=== PATIENT | male | born 1990 | race African-American/Black ===

== ENCOUNTER 2016-07-05 15:23 | Emergency (ER) | payer OTHER ==
--- NOTE | 2016-07-05 16:33 | RAD ---
PA AND LATERAL CHEST: Date: 07-05-16 History: Coughing, chest pain. FINDINGS: The cardiac silhouette is at the upper limits of normal in size. Pulmonary vasculature is within no rmal limits. The lungs are clear. The osseous structures are intact. IMPRESSION: No acute cardiopulmonary process. POS: BAKARI
--- NOTE | 2016-07-05 16:59 | PICIS ---
[facility] EMERGENCY RECORD TRIAGE (15:33 JPAR) TRIAGE NOTES: coughing and sneezing 3 days. (15:33 JPAR) PATIENT: NAME: Jarocho Beebe JR, AGE: 26, GENDER: male, : Mon1990, TIME OF GREET: MonJul 05, 2016 15:24, PREFERRED LANGUAGE: Indonesian, ETHNICITY: Not or , ECODE BILLING MAP: [facility], SSN: [id number], Zip Code: [address], KG WEIGHT: 90.72, PHONE: , , , PERSON ID: [id number], [facility] (15:33 JPAR) COMPLAINT: SNEEZING/COUGHING. (15:33 JPAR) ADMISSION: URGENCY: 5 Fast Track, ADMISSION SOURCE: Home, TRANSPORT: CAR, BED: TRIAGE. (15:33 JPAR) ASSESSMENT: Assessment: coughing and sneezing, R rib pain when coughing or sneezing, Symptoms began 3 days, Symptoms began 3 days ago. (15:35 JPAR) SIRS SCORING: Heart Rate 55-109 (0), Temp range 96.8-101.1 (0), respiratory rate 12-24 (0), Mental Status altered: no (0), Infection or Suspected Infection: No. (15:35 JPAR) TRIAGE SCREENING: Patient denies suicidal ideation, Patient denies presence of domestic violence. (15:35 JPAR) PROVIDERS: TRIAGE NURSE: Manuel Montero RN. (15:33 JPAR) VITAL SIGNS: BP 127/83, Pulse 66, Resp 16, Temp 98.9, (Oral), Pain 5, O2 Sat 99, on Room Air, Time 07/05/2016 15:32. (15:32 JPAR) PREVIOUS VISIT ALLERGIES: No Known Drug Allergies. (15:33 JPAR) No Known Drug Allergies. (15:35 JPAR) KNOWN ALLERGIES No Known Drug Allergies CURRENT MEDICATIONS (15:33 JPAR) None VITAL SIGNS (15:32 JPAR) VITAL SIGNS: BP: 127/83, Pulse: 66, Resp: 16, Temp: 98.9 (Oral), Pain: 5, O2 sat: 99 on Room Air, Time: 07/05/2016 15:32. NURSING ASSESSMENT: FOCUSED (15:33 JPAR) CONSTITUTIONAL: Patient arrives ambulatory, Gait steady, History obtained from patient, Patient appears comfortable, Patient cooperative, Patient alert, Oriented to person, place and time, Skin warm, Skin dry, Skin normal in color, Mucous membranes pink, Mucous membranes moist, Patient complains of seasonal allergies/ coughing and sneezing for 3 days, pt now complains of R rib pain because he has been coughing and sneezing for 3 days. PAIN: aching pain, R lower rib cage, Onset of pain 3 days, on a scale 0-10 patient rates pain as 5, Pain exacerbated by, coughing and sneezing. EYES: Focused eye assessment finding include pupils equally round and reactive to light, no redness, no tearing, no foreign body &a-1R&a+25V*p+0X*c3091F*c202B*c15G*c2P*p-0X&a-25V&a+1R Name: Jarocho Beebe Torsten ARIAS : 1990 M26 MedRec: [id number] AcctNum: [id number] Prepared: MonJul 05, 2016 16:57 by Interface Page 1 of 5 pMD [facility] EMERGENCY RECORD sensation. RESPIRATORY: Focused respiratory assessment findings include breath sounds clear. SAFETY: Side rails up, Cart/Stretcher in lowest position, Family at bedside, Call light within reach, Hospital ID band on. NURSING PROCEDURE: DISCHARGE NOTE (16:51 JPAR) DISCHARGE: Patient discharged to home, ambulating without assistance, driving self, unaccompanied, Summary of Care printed/ provided, Patient requested and was provided an electronic copy of Discharge Instructions, Transition record given to patient, Discharge instructions given to patient, Simple or moderate discharge teaching performed, drink more water, establish PCP at [facility] Prescriptions given and instructions on side effects given, Name of prescription(s) given: Ultram, Medication reconciliation form given, Above person(s) verbalized understanding of discharge instructions and follow-up care, Patient treated and evaluated by physician. BELONGINGS: Belongings and valuables with patient at time of discharge include:, Belongings remain with patient, Valuables remain with patient. SAFETY: Side rails up, Cart/Stretcher in lowest position, Call light within reach, Hospital ID band on. NURSING PROCEDURE: NURSE NOTES NURSES NOTES: Patient in no apparent distress, Notes: Pt has been in ER for 25 minutes and RN has not seen or heard pt sneeze or cough yet. (15:58 JPAR) Notes: pt has not coughed or sneezed once in 70 minutes. (16:45 JPAR) NURSING PROCEDURE: TRANSPORT TO TESTS (16:27 CCRI) TRANSPORT TO TESTS: Patient transported to x-ray, ambulatory, Accompanied by x-ray registered dietetic technician, Patient arrived in location at 16:19, Patient departed location at 16:24. ORDER DETAILS Order Name: XR Chest Pa & Lat STANDARD, Status: Active, Time: 16:10 07/05/2016, User: FABI, - Ordered for: MD Yanes Andrea, - Entered by: MD Yanes Andrea - MonJul 05, 2016 16:10, - Quantity: 1. HPI COUGH (16:10 AGRE) CHIEF COMPLAINT: Patient presents for evaluation of cough. HISTORIAN: History provided by patient, WAS COUGHING AND SNEEZING FOR A FEW DAYS AND NOW HAS PAIN SHOOTING UP THE RIGHT SIDE OF HIS CHEST WHEN HE COUGHS OR SNEEZES. THINKS HE HAD A FEVER A FEW DAYS AGO. NO NASAL CONGESTION, TRAUMA, &a-1R&a+25V*p+0X*s2481U*c202B*c15G*c2P*p-0X&a-25V&a+1R Name: Abiel Jarochodenisa Sarmiento JR : 1990 M26 MedRec: [id number] AcctNum: [id number] Prepared: MonJul 05, 2016 16:57 by Interface Page 2 of 5 pMD [facility] EMERGENCY RECORD OTHER SYMPTOMS. LOCATION: Symptoms are localized, most severe to RIGHT LATERAL CHEST WALL. QUALITY: Denies tightness, Denies wheezing, Pain is sharp in nature, described as stabbing, described as tearing sensation. SEVERITY: Maximum severity of symptoms moderate, Currently symptoms are moderate. TIME COURSE: Gradual onset of symptoms, Symptoms are worsening. ASSOCIATED WITH: Associated with chest pain, No associated chills, No associated diarrhea, No associated diaphoresis, No associated dyspnea on exertion, No associated fever, No associated nausea, No associated stridor, No associated upper respiratory infection, No associated wheezing, No associated weakness, Denies any other complaints. EXACERBATED BY: Patient's condition exacerbated by deep breaths. RELIEVED BY: Patient's condition relieved by nothing. ROS (16:12 AGRE) CONSTITUTIONAL: Historian denies chills, denies fever, denies lethargy, denies malaise. EYES: Historian denies eye pain, denies eye redness. ENT: Historian denies rhinorrhea, denies sinus pain, denies sore throat. CARDIOVASCULAR: Historian reports chest pain, denies dyspnea on exertion. RESPIRATORY: Historian reports cough, denies shortness of breath, reports sputum, denies stridor, denies wheezing. GI: Historian denies abdominal pain, denies nausea, denies vomiting. MUSCULOSKELETAL: Historian denies back pain, denies neck pain. SKIN: Negative skin review of systems, Historian denies skin changes, denies skin lesions. NEUROLOGIC: Historian denies headache, denies mental status changes. PSYCHIATRIC: Negative psychiatric review of systems, Historian denies anxiety. PAST MEDICAL HISTORY (15:35 JPAR) MEDICAL HISTORY: Notes: Gallstones, Flu vaccine not up to date, Tetanus immunization up to date, Pneumococcal vaccine up to date. MALE SURGICAL HISTORY: Surgical history of cholecystectomy, Date of surgery 2011. PSYCHIATRIC HISTORY: No previous psychiatric history. SOCIAL HISTORY: Patient denies alcohol use, Patient denies drug use, Patient has no smoking history. PHYSICAL EXAM (16:13 AGRE) CONSTITUTIONAL: Vital signs reviewed, Patient afebrile, Patient appears non toxic, Patient appears pain free, Patient alert and &a-1R&a+25V*p+0X*i5762I*c202B*c15G*c2P*p-0X&a-25V&a+1R Name: Abiel Jarocho Torsten ARIAS : 1990 M26 MedRec: [id number] AcctNum: [id number] Prepared: MonJul 05, 2016 16:57 by Interface Page 3 of 5 pMD [facility] EMERGENCY RECORD oriented to person, place and time, NURSES NOTES REVIEWED. HEAD: Head exam included findings of head atraumatic, normocephalic. EYES: Eye exam included findings of eyelids normal to inspection, Extraocular muscles intact, Conjunctiva normal, Sclera normal. ENT: Ear exam normal, tympanic membranes normal, Nose exam normal, No turbinate mucosa discharge, Pharynx exam normal, Uvula exam normal, Tonsil exam normal, Mouth exam normal. NECK: Neck exam included findings of normal range of motion, no meningeal signs. RESPIRATORY CHEST: Breath sounds clear, No wheezing, No rales, No rhonchi, Breath sounds not absent, Breath sounds not diminished, Tenderness, moderate, to the right lateral chest, Palpation of chest reproduces symptoms, no crepitus, Respiratory exam included findings of no respiratory distress, Chest exam included findings of chest movement symmetrical. CARDIOVASCULAR: Cardiovascular assessment normal, Cardiovascular exam included findings of heart rate regular rate and rhythm, Heart sounds normal. BACK: Back exam included findings of normal inspection, range of motion normal. UPPER EXTREMITY: Upper extremity exam included findings of inspection normal, Range of motion normal. LOWER EXTREMITY: Lower extremity exam included findings of inspection normal, Range of motion normal. NEURO: Neuro exam findings include patient oriented to person, place and time, Speech normal, Gait normal, Memory normal, Cranial nerves intact, no focal motor deficits. SKIN: Skin exam included findings of skin warm, dry, and normal in color. PSYCHIATRIC: Psychiatric exam normal, Normal affect. EVENTS TRANSFER: Triage to Emergency Triage. (MonJul 05, 2016 15:33 JPAR) Removed from Emergency Triage. (16:54 JPAR) RADIOLOGYINTERPRETATION (16:41 AGRE) DIGITAL STRATEGIST: Preliminary review of x-rays by, Radiologist, IMPRESSION: No acute cardiopulmonary process. O2SAT INTERPRETATION (16:48 AGRE) O2SAT: Continuous pulse oximetry, Oxygen saturation 99%, on room air, Oxygen saturation interpretation: Normal, No intervention required. DOCTOR NOTES (16:48 AGRE) TEXT: PATIENT REMAINED COMFORTABLE IN ED WITHOUT SIGNS OF &a-1R&a+25V*p+0X*s0736Q*c202B*c15G*c2P*p-0X&a-25V&a+1R Name: Jarocho Beebe Torsten ARIAS : 1990 M26 MedRec: [id number] AcctNum: [id number] Prepared: MonJul 05, 2016 16:57 by Interface Page 4 of 5 pMD [facility] EMERGENCY RECORD DISTRESS. DISCUSSED WITH HIM FINDINGS ON EXAM, RESULTS OF XRAY STUDIES, POSSIBILITY FOR HAIRLINE FX AND NEED FOR FOLLOW UP. HE EXPRESSED UNDERSTANDING AND AGREEMENT. PATIENT STATUS: Patient has improved since arrival to emergency department. PATIENT PLAN: The patient will be discharged. DATA REVIEWED: Xray data reviewed. PROBLEM LIST No recorded problems DIAGNOSIS (16:43 AGRE) FINAL: PRIMARY: BRONCHITIS, ADDITIONAL: CHEST WALL PAIN. DISPOSITION PATIENT: Disposition Type: Discharge, Disposition: *Discharge Home, Condition: Improved. (16:43 AGRE) Patient left the department. (16:54 JPAR) INSTRUCTION (16:45 AGRE) DISCHARGE: BRONCHITIS, NO ABX (ADULT), ALLERGY SEASONAL. FOLLOWUP: [facility], [facility] , . SPECIAL: TAKE BENADRYL 50 MG EVERY 8 HOURS NEEDED FOR SNEEZING. TAKE MOTRIN 800 MG EVERY 8 HOURS FOR INFLAMMATION AND PAIN. TAKE ULTRAM FOR SEVERE PAIN. SEE YOUR PHYSICIAN FOR RECHECK EARLY NEXT WEEK. SEE A PHYSICIAN SOONER IF WORSENING OR IF NEW SYMPTOMS DEVELOP. PRESCRIPTION (16:43 AGRE) Ultram: TABLET : 50 mg : ORAL : Quantity: 1-2 Unit: tab(s) Route: ORAL Schedule: every 6 hours PRN Dispense: 20 May substitute. Refills: No Refills . NOTES: PRN SEVERE PAIN No Refills. IMAGING (16:53 JPAR) *SUPPLY CHARGE SHEET: Image captured from scanner. *DISCHARGE INSTRUCTIONS RECEIPT: Image captured from scanner. ADMIN (16:50 AGRE) DIGITAL SIGNATURE: MD Yanes Andrea. Santos: AGRE=MD Yanes Andrea CCRI=SUKHWINDER [place] JPAR=FLACO Montero, Manuel &a-1R&a+25V*p+0X*g2707T*c202B*c15G*c2P*p-0X&a-25V&a+1R Name: Jarocho Beebe : 1990 M26 MedRec: [id number] AcctNum: [id number] Prepared: steph Jul 05, 2016 16:57 by Interface Page 5 of 5 pMD MTDD
== END 2016-07-05 16:50 | disposition home or self-care (01) ==
LOC: NAV ERS 15:23
DX: J40 Bronchitis, not specified as acute or chronic (principal)
CPT/HCPCS: 71020; 99283

== ENCOUNTER 2022-09-12 04:42 | Emergency (ER) | payer OTHER, SELFPAY | END 2022-09-12 05:40 | disposition home or self-care (01) | LOC: NAV ERS 04:42 | DX: G62.9 Polyneuropathy, unspecified (principal); I10 Essential (primary) hypertension | CPT/HCPCS: 99283 ==

== ENCOUNTER 2023-03-18 20:00 | Emergency (ER) | payer BC | END 2023-03-18 20:28 | disposition home or self-care (01) | LOC: NAV ERS 20:00 | DX: J06.9 Acute upper respiratory infection, unspecified (principal) | CPT/HCPCS: 99283 ==